=== PATIENT | female | born 1940 | race African-American/Black ===

== ENCOUNTER 2016-08-18 08:43 | Day surgery (SDC) | payer OTHER ==
[2016-08-18] MEDS ORDERED: LR 1,000 ML ONE (09:11)
[2016-08-18] MEDS ORDERED: XYLOCAINE 1% ONE (09:23)
[2016-08-18] MEDS ORDERED: XYLOCAINE 2% ONE (09:24)
[2016-08-18] MEDS ORDERED: XYLOCAINE 2% VISCOUS ONE (09:24)
[2016-08-18] MEDS ORDERED: EPINEPHRINE ONE (09:24)
[2016-08-18] MEDS ORDERED: SODIUM CHLORIDE 0.9% 20 ML ONE ×2 (09:25→11:50)
[2016-08-18] MEDS ORDERED: XYLOCAINE 2% MISC ONE (10:07)
[2016-08-18] MEDS ORDERED: EPINEPHRINE INJ ONE (11:00)
[2016-08-18] MEDS ORDERED: DIPRIVAN 1% ONE (11:23)
[2016-08-18] MEDS ORDERED: FENTANYL ONE (11:23)
[2016-08-18] MEDS ORDERED: NEO-SYNEPHRINE ONE (11:50)
[2016-08-18] MEDS ORDERED: ZOFRAN ONE (11:50)
[2016-08-18] MEDS ORDERED: XYLOCAINE-MPF 2% ONE (11:51)
[2016-08-18] MEDS ORDERED: DECADRON ONE (11:51)
[2016-08-18] MEDS ORDERED: ROBINUL ONE (11:51)
[2016-08-18] MEDS ORDERED: EPHEDRINE ONE (11:51)
--- NOTE | 2016-08-18 12:12 | OPERATIVE NOTE ---
PROCEDURE DATE: 08/18/2016 PROCEDURE PERFORMED: Bronchoscopy with washing of the trachea, transbronchial biopsies of the anterior segment of the right lower lobe, transbronchial biopsies of the lateral segment of the right lower lobe, transbronchial biopsies of the lateral segment of the right middle lobe, and endobronchial biopsies at the entrance of the left upper lobe between the lingular segment and the apical segments. PROVIDER: Rajan Mondragon MD DESCRIPTION OF PROCEDURE: After informed consent was obtained, the patient was met in the outpatient area and all questions were answered prior to the procedure. The patient was brought to the operating room and was sedated with general anesthesia and an LMA was utilized. The bronchoscope was advanced through the LMA to the level of the vocal cords. Vocal cord visualization was hindered and the LMA was adjusted so that the vocal cords could be well visualized. The bronchoscope was advanced into the trachea. The patient did bite down on the bronchoscope and a piece of gauze was placed between the teeth to prevent biting. The airways were examined. Airways to the left upper lobe revealed generalized edema, although definite tumor could not be visualized. An image of the edema was obtained. Airways to the right upper lobe were patent, without lesions. Airways to the right middle lobe and right lower lobe were also edematous and video image was obtained. Topical epinephrine was instilled on the airway segments with partial resolution of the edema. A wash was performed from the proximal tracheobronchial tree. The bronchoscope was directed to the right lower lobe. The medial basilar segment, the anterior segment, and lateral segment could be well visualized, although the posterior segment could not. Transbronchial biopsies were taken from the lateral segment under fluoroscopy. Five samples were obtained. The bronchoscope was directed to the lateral segment. Five transbronchial biopsies were taken from this segment. The bronchoscope was retracted to the right middle lobe. Five transbronchial biopsies were performed from the lateral segment of the right middle lobe. The bronchoscope was taken was taken back to the entrance of the left upper lobe and biopsies were taken of the generalized edema. A prominent area was seen between the lingular segment and the anterior segment divider, and biopsies were taken from this area. The patient tolerated the procedure without difficulty. Initial visualization with fluoroscopy did not reveal a pneumothorax. Postprocedure chest x-ray has been ordered.
--- NOTE | 2016-08-18 12:32 | Diag Imaging Result Document ---
PROCEDURE NAME: CHEST-PORTABLE - 08/18/2016 AP PORTABLE CHEST AT 1120 HOURS: FINDINGS: There is considerably more pleural fluid on the right than on 06/08/2013. There are no more recent radiographs available for comparison. Over half of the right hemithorax is opacified. There may be mild interstitial pulmonary edema throughout the left lung. There is a Port-A-Cath on the left. IMPRESSION: Worsened pleural effusion and compressive atelectasis in the right lung.
[2016-08-18 13:00] VITALS: BP 132/79
== END 2016-08-18 13:16 | disposition home or self-care (01) ==
LOC: ENDO 08:43
PROVIDERS: ATTEND Internal Medicine Pulmonary Disease
DX: C34.31 Malignant neoplasm of lower lobe, right bronchus or lung (principal); C34.12 Malignant neoplasm of upper lobe, left bronchus or lung; Z87.891 Personal history of nicotine dependence
CPT/HCPCS: 71010; 76000; 87015; 87070; 87102; 87116; 87147; 87205; 87206; 88305; 88313; J0171; J1100; J2370; J2405; J3010; J7120